=== PATIENT | female | born 1945 | race Caucasian/White ===

== ENCOUNTER 2022-02-28 10:37 | Emergency (ER) | payer MEDICARE ==
[2022-02-28] MEDS ORDERED: Diazepam 10 MG/2 ML SYRINGE ONE (11:25)
== END 2022-02-28 12:39 | disposition home or self-care (01) ==
LOC: ERS 10:37
DX: M54.42 Lumbago with sciatica, left side (principal); I10 Essential (primary) hypertension; E78.5 Hyperlipidemia, unspecified; Z87.891 Personal history of nicotine dependence; Z79.899 Other long term (current) drug therapy
CPT/HCPCS: 96372; J3360

== ENCOUNTER 2023-04-29 15:30 | Inpatient (IN) | payer MEDICARE ==
[2023-05-03] MEDS ORDERED: Dexamethasone 4 mg/ml Vial ONE (06:16)
[2023-05-03] MEDS ORDERED: Albumin 5% 500 ML ONE (06:16)
[2023-05-03] MEDS ORDERED: Bupivacaine PF 0.5% 30 ML VIAL ONE (06:16)
[2023-05-03] MEDS ORDERED: EPINEPHrine 1 MG/ML AMP ONE (06:16)
[2023-05-03] MEDS ORDERED: Fentanyl 250 MCG/5 ML VIAL ONE (06:49)
[2023-05-03] MEDS ORDERED: Midazolam HCl 2 mg/2 ml Vial ONE (06:49)
[2023-05-03] MEDS ORDERED: Insulin Regular 300 UNITS/3 ML VIAL ONE (06:50)
[2023-05-03] MEDS ORDERED: Rocuronium Bromide 50 MG/5 ML VIAL ONE (06:50)
[2023-05-03] MEDS ORDERED: niCARdipine 25 MG/10 ML SDV ONE (06:50)
[2023-05-03] MEDS ORDERED: Norepinephrine 4 MG/4 ML VIAL ONE (06:50)
[2023-05-03] MEDS ORDERED: Aminocaproic Acid 5 GM/20 ML VIAL ONE ×2 (06:50→07:45)
[2023-05-03] MEDS ORDERED: Heparin 10,000 UNITS/1 ML VIAL 30,000 UNITS in Sodium Chloride 0.9% 1,000 ML FS SCH (07:00)
[2023-05-03] MEDS ORDERED: Vancomycin (BATCH) 1.5 GRAM/300 ML BAG ONE (07:00)
[2023-05-03] MEDS ORDERED: Clindamycin/D5W 600 mg/50 ml Premix Bag ONE (07:25)
[2023-05-03] MEDS ORDERED: Thrombin 5000 UNITS/5 ML VIAL ONE (07:45)
[2023-05-03] MEDS ORDERED: PROPOFOL 200 MG/20 ML VIAL ONE (07:45)
[2023-05-03] MEDS ORDERED: Sodium Bicarb 50 MEQ/50 ML VIAL ONE (07:45)
[2023-05-03] MEDS ORDERED: Protamine Sulfate 250 MG/25 ML VIAL ONE (07:45)
[2023-05-03] MEDS ORDERED: Esmolol 100 MG/10 ML VIAL ONE (07:45)
[2023-05-03] MEDS ORDERED: Calcium Chloride 1 GM/10 ML Abboject SYRINGE ONE (07:45)
[2023-05-03] MEDS ORDERED: Lidocaine 1% PF 5 ML VIAL ONE (07:45)
[2023-05-03] MEDS ORDERED: Heparin 5,000 UNITS/ML VIAL ONE (07:45)
[2023-05-03] MEDS ORDERED: Cardioplegic Soln 1,000 ML BAG ONE (07:45)
[2023-05-03] MEDS ORDERED: Magnesium 5 GM/10 ML VIAL ONE (07:45)
[2023-05-03] MEDS ORDERED: Heparin 30,000 units/30 ml VIAL ONE (07:45)
[2023-05-03] MEDS ORDERED: Papaverine 60 MG/2 ML VIAL ONE (07:45)
[2023-05-03] MEDS ORDERED: Rocuronium Bromide 10 MG/ML (10ML VIAL) ONE (07:45)
[2023-05-03] MEDS ORDERED: Mannitol 12.5 GM/50 ML ONE (07:45)
[2023-05-03] MEDS ORDERED: Potassium Chloride 60 MEQ/30 ML VIAL ONE (07:45)
[2023-05-03] MEDS ORDERED: Lidocaine 2% PF 100 mg/5 ml Syringe ONE (07:45)
[2023-05-03] MEDS ORDERED: Vancomycin 1 GM VIAL ONE (07:45)
[2023-05-03] MEDS ORDERED: Albuterol HFA (OR) 200 PUFF INH ONE (08:09)
[2023-05-03] MEDS ORDERED: PHENYLEPHRINE-NS 100 MCG/ML 10 ML SYRINGE ONE (08:41)
[2023-05-03] MEDS ORDERED: Bisacodyl 10 MG SUPP PR PRN (10:57)
[2023-05-03] MEDS ORDERED: Mag-Al 1200 mg/1200 mg/30 ML UDCUP PO PRN (10:57)
[2023-05-03] MEDS ORDERED: Ipratropium/Albuterol 3 ML NEB NEB PRN (10:57)
[2023-05-03] MEDS ORDERED: Morphine 2 MG/ML VIAL SLOW IVP PRN (10:57)
[2023-05-03] MEDS ORDERED: HYDROcodone/Acetaminophen 5/325 mg Tablet PO PRN ×2 (10:57)
[2023-05-03] MEDS ORDERED: Ondansetron PF 4 MG/2 ML Vial IVP PRN (10:57)
[2023-05-03] MEDS ORDERED: Nitroglycerin 50 MG/250 ML BOT 250 ML IVPB PRN (10:57)
[2023-05-03] MEDS ORDERED: NOREPINEPHRINE 8 MG/250 ML-D5W 250 ML IVPB PRN (10:57)
[2023-05-03] MEDS ORDERED: Hetastarch 6% 500 ML 500 ML IVPB PRN (10:57)
[2023-05-03] MEDS ORDERED: Bisacodyl 5 MG TAB PO PRN (10:57)
[2023-05-03] MEDS ORDERED: Guaifenesin DM 100-10/5 ML UDCUP PO PRN (10:57)
[2023-05-03] MEDS ORDERED: hydrALAZINE 20 MG/ML VIAL SLOW IVP PRN (10:57)
[2023-05-03] MEDS ORDERED: D5 1/2 NS w/20 mEq KCL 1,000 ML IV SCH (11:00)
[2023-05-03] MEDS ORDERED: Magnesium 2 GM/50 ML(in water) 2 GM in Premix Bag 1 BAG IVPB SCH (11:00)
[2023-05-03] MEDS ORDERED: HUMULIN R 100 UNITS in Sodium Chloride 0.9% 100 ML IVPB SCH (11:15)
[2023-05-03] MEDS ORDERED: Insulin Regular 300 UNITS/3 ML VIAL SC PRN (11:15)
[2023-05-03] MEDS ORDERED: Glucagon 1 MG/ML KIT SC PRN (11:15)
[2023-05-03] MEDS ORDERED: Dextrose 5% in Water 1,000 ML IV PRN (11:15)
[2023-05-03] MEDS ORDERED: Dextrose 50% Abboject 50 ML SYRINGE SLOW IVP PRN (11:15)
[2023-05-03 11:18] LABS: Actual Bicarbonate (HCO3a) 22.9 mEq/L (22-28); Base Excess (BEa) -2.5 mEq/L (-2.0 to +3.0); CO2 Tension 41.7 mmHg (35.0-45.0); Calcium, Ionized (arterial) 1.08 mmol/L (1.12-1.30); Carboxyhemoglobin (COHb) 0.3 gm% (0.0-3.0); Hematocrit-ABG 36 % (36.0-47.0); Hemoglobin (Hb) 12.4 g/dL (12.0-16.0); O2 Tension (PaO2), arterial 143.4 mmHg (> 70.0); Potassium - ABG Lab 3.61 mmol/L (3.70-5.30); pH, Arterial 7.357 (7.35-7.45)
[2023-05-03 11:19] LABS: ALV-art Gradient 160.975 mmHg (0-20); Puncture Site Arterial Line
[2023-05-03 11:23] LABS: #Eosinphils 0.1 thou/uL (0.0-0.7); #Monocytes 0.4 thou/uL (0.11-0.59); #Neutrophils 7.8 thou/uL (1.40-6.50); %Basophils 0.3 % (0.0-1.0); %Lymphocytes 18.5 % (21.0-51.0); %Monocytes 3.9 % (0.0-10.0); %Neutrophils 75.6 % (42.0-75.0); Hematocrit 32.9 % (36.0-47.0); Hemoglobin 10.8 g/dL (12.0-16.0); Mean Corpuscular HGB CONC 32.8 g/dL (32.0-36.0); Mean Corpuscular Hemoglobin 31.2 pg (27.0-31.0); Mean Corpuscular Volume 95.1 fl (78.0-98.0); Mean Platelet Volume 9.9 fL (7.4-10.4); Platelet Count 125 10x3/uL (130-400); RBC Distribution Width 12.3 % (11.5-14.5); Red Blood Cell (RBC) Count 3.46 mill/uL (4.20-5.40); White Blood Cell (WBC) Count 10.3 10x3/uL (4.8-10.8)
[2023-05-03 11:40] LABS: INR-International Normal Ratio 1.3; Prothrombin Time 16.3 sec (12.0-14.7)
[2023-05-03 11:41] LABS: PTT 37.6 sec (22.9-36.1)
[2023-05-03 11:50] LABS: Anion Gap 12 mmol/L (10-20); BUN (Urea Nitrogen) 19 mg/dL (9.8-20.1); Calc. Creatinine Clearance 146 mL/min (70-130); Carbon Dioxide 19 mmol/L (23-31); Chloride 114 mmol/L (98-107); Estimated GFR 94; Glucose 161 mg/dL (83-110); Potassium 3.3 mmol/L (3.5-5.1); Sodium 142 mmol/L (136-145)
[2023-05-03] MEDS: Ketorolac Tromethamine 30 MG/ML VIAL IVP SCH ×2 (12:08→17:40)
[2023-05-03] MEDS: fentaNYL 50 mcg/mL 1 mL Vial SLOW IVP PRN ×3 (12:09→21:21)
[2023-05-03] MEDS: Potassium Chloride 20 MEQ/100 ML PREMIX BAG IVPB PRN ×2 (12:11→17:52)
[2023-05-03] MEDS: Ipratropium/Albuterol 3 ML NEB NEB SCH ×2 (13:37→18:52)
[2023-05-03] MEDS: Clindamycin/D5W 600 MG in Premix Bag 1 BAG IVPB SCH ×2 (14:12→20:06)
[2023-05-03 14:27] VITALS: BMI 43.6
[2023-05-03 15:35] LABS: Actual Bicarbonate (HCO3a) 22.1 mEq/L (22-28); Base Excess (BEa) -4.1 mEq/L (-2.0 to +3.0); Calcium, Ionized (arterial) 1.08 mmol/L (1.12-1.30); Carboxyhemoglobin (COHb) 0.3 gm% (0.0-3.0); Hematocrit-ABG 37 % (36.0-47.0); Hemoglobin (Hb) 12.5 g/dL (12.0-16.0); O2 Tension (PaO2), arterial 87.4 mmHg (> 70.0)
[2023-05-03 15:42] LABS: Puncture Site Arterial Line
[2023-05-03 17:27] LABS: Hematocrit 34.8 % (36.0-47.0); Hemoglobin 11.4 g/dL (12.0-16.0)
[2023-05-03 17:46] LABS: Potassium 3.8 mmol/L (3.5-5.1)
[2023-05-03] MEDS: Vancomycin 1.5 GRAM/300 ML BAG 1.5 GM in Premix Bag 1 BAG IVPB SCH (19:57)
[2023-05-03] MEDS ORDERED: Famotidine/PF 20 mg/2ml Vial SLOW IVP SCH (21:00)
[2023-05-03] MEDS: Atorvastatin Calcium 20 MG TAB PO SCH (21:11)
[2023-05-03] MEDS: Acetaminophen 325 MG TAB PO PRN (21:50)
[2023-05-04] MEDS: Ipratropium/Albuterol 3 ML NEB NEB SCH ×4 (01:23→17:58)
[2023-05-04] MEDS: Clindamycin/D5W 600 MG in Premix Bag 1 BAG IVPB SCH ×2 (02:20→09:22)
[2023-05-04 03:57] LABS: #Monocytes 0.7 thou/uL (0.11-0.59); #Neutrophils 11.7 thou/uL (1.40-6.50); %Basophils 0.2 % (0.0-1.0); %Lymphocytes 4.8 % (21.0-51.0); %Monocytes 5.4 % (0.0-10.0); %Neutrophils 89.1 % (42.0-75.0); Hematocrit 33.5 % (36.0-47.0); Hemoglobin 10.8 g/dL (12.0-16.0); Mean Corpuscular HGB CONC 32.2 g/dL (32.0-36.0); Mean Corpuscular Hemoglobin 30.5 pg (27.0-31.0); Mean Corpuscular Volume 94.6 fl (78.0-98.0); Mean Platelet Volume 10.1 fL (7.4-10.4); Platelet Count 143 10x3/uL (130-400); RBC Distribution Width 12.5 % (11.5-14.5); Red Blood Cell (RBC) Count 3.54 mill/uL (4.20-5.40); White Blood Cell (WBC) Count 13.1 10x3/uL (4.8-10.8)
[2023-05-04 04:19] LABS: Anion Gap 10 mmol/L (10-20); BUN (Urea Nitrogen) 18 mg/dL (9.8-20.1); Calc. Creatinine Clearance 134 mL/min (70-130); Calcium 7.8 mg/dL (7.8-10.44); Carbon Dioxide 24 mmol/L (23-31); Chloride 110 mmol/L (98-107); Estimated GFR 91; Glucose 154 mg/dL (83-110); Potassium 4.4 mmol/L (3.5-5.1); Sodium 140 mmol/L (136-145)
[2023-05-04] MEDS: Vancomycin 1.5 GRAM/300 ML BAG 1.5 GM in Premix Bag 1 BAG IVPB SCH (06:31)
[2023-05-04] MEDS: Ketorolac Tromethamine 30 MG/ML VIAL IVP SCH ×5 (06:31→23:33)
[2023-05-04] MEDS ORDERED: Aspirin 325 MG TAB PO SCH (09:00)
[2023-05-04] MEDS: Acetaminophen 325 MG TAB PO PRN (09:18)
[2023-05-04] MEDS: fentaNYL 50 mcg/mL 1 mL Vial SLOW IVP PRN (09:20)
[2023-05-04] MEDS: Magnesium 2 GM/50 ML(in water) 2 GM in Premix Bag 1 BAG IVPB SCH (09:21)
[2023-05-04] MEDS ORDERED: Insulin Glargine 30 UNITS/0.3 ML VIAL SC PRN (11:12)
[2023-05-04] MEDS: Atorvastatin Calcium 20 MG TAB PO SCH (21:16)
[2023-05-05] MEDS: Ipratropium/Albuterol 3 ML NEB NEB SCH ×4 (02:20→18:17)
[2023-05-05] MEDS: Ketorolac Tromethamine 30 MG/ML VIAL IVP SCH ×4 (06:05→23:32)
[2023-05-05] MEDS ORDERED: Bisacodyl 5 MG TAB PO PRN (07:23)
[2023-05-05] MEDS ORDERED: Guaifenesin DM 100-10/5 ML UDCUP PO PRN (07:23)
[2023-05-05] MEDS ORDERED: Milk Of Magnesia 30 ML UDCUP PO PRN (07:23)
[2023-05-05] MEDS ORDERED: Mag-Al 1200 mg/1200 mg/30 ML UDCUP PO PRN (07:23)
[2023-05-05] MEDS ORDERED: Mineral Oil ENEMA PR PRN (07:23)
[2023-05-05] MEDS ORDERED: diphenhydrAMINE 25 MG CAP PO PRN (07:23)
[2023-05-05] MEDS ORDERED: Nitroglycerin 0.4 MG TAB (25 Tab Bottle) SL PRN (07:23)
[2023-05-05] MEDS ORDERED: Bisacodyl 10 MG SUPP PR PRN (07:23)
[2023-05-05] MEDS ORDERED: Artificial Tear Sol 15 ML BOT EA EYE PRN (07:23)
[2023-05-05] MEDS ORDERED: Zolpidem Tartrate 5 MG TAB PO PRN (07:23)
[2023-05-05] MEDS ORDERED: Potassium Chloride 10 MEQ TAB PO SCH (08:00)
[2023-05-05] MEDS: Magnesium 2 GM/50 ML(in water) 2 GM in Premix Bag 1 BAG IVPB SCH (08:06)
[2023-05-05] MEDS: Aspirin 325 mg Enteric Coated Tablet PO SCH (08:07)
[2023-05-05] MEDS: Metoprolol Tartrate 25 MG TAB PO SCH ×2 (08:08→20:47)
[2023-05-05] MEDS: fentaNYL 50 mcg/mL 1 mL Vial SLOW IVP PRN (08:51)
[2023-05-05] MEDS ORDERED: Furosemide 40 MG TAB PO SCH (09:00)
[2023-05-05] MEDS: Atorvastatin Calcium 20 MG TAB PO SCH (20:46)
[2023-05-06] MEDS: Ipratropium/Albuterol 3 ML NEB NEB SCH ×5 (00:59→23:47)
[2023-05-06] MEDS: Ketorolac Tromethamine 30 MG/ML VIAL IVP SCH ×2 (05:46→11:33)
[2023-05-06] MEDS ORDERED: Metolazone 5 MG TAB PO SCH (06:45)
[2023-05-06] MEDS: Potassium Chloride 10 MEQ TAB PO SCH ×2 (07:15→17:35)
[2023-05-06] MEDS: Furosemide 40 MG TAB PO SCH ×2 (08:03→13:00)
[2023-05-06] MEDS: Aspirin 325 mg Enteric Coated Tablet PO SCH (08:03)
[2023-05-06] MEDS: Metoprolol Tartrate 25 MG TAB PO SCH ×2 (08:03→21:37)
[2023-05-06] MEDS: Acetaminophen 325 MG TAB PO PRN ×2 (08:22→23:17)
[2023-05-06 10:46] LABS: Actual Bicarbonate (HCO3a) 22.6 mEq/L (22-28); Analyzer IN Cardio OR; Base Excess (BEa) -2.2 mEq/L (-2.0 to +3.0); CO2 Tension 39.1 mmHg (35.0-45.0); Calcium, Ionized (arterial) 1.12 mmol/L (1.12-1.30); Carboxyhemoglobin (COHb) 1.2 gm% (0.0-3.0); Hematocrit-ABG 38 % (36.0-47.0); O2 Tension (PaO2), arterial 453.4 mmHg (> 70.0); Potassium - ABG Lab 3.35 mmol/L (3.70-5.30)
[2023-05-06 10:47] LABS: Actual Bicarbonate (HCO3a) 23.9 mEq/L (22-28); Analyzer IN Cardio OR; Base Excess (BEa) -1.1 mEq/L (-2.0 to +3.0); CO2 Tension 40.6 mmHg (35.0-45.0); Calcium, Ionized (arterial) 1.07 mmol/L (1.12-1.30); Carboxyhemoglobin (COHb) 0.6 gm% (0.0-3.0); Hematocrit-ABG 36 % (36.0-47.0); Hemoglobin (Hb) 12.1 g/dL (12.0-16.0); Potassium - ABG Lab 3.37 mmol/L (3.70-5.30); pH, Arterial 7.387 (7.35-7.45)
[2023-05-06 10:47] LABS: Actual Bicarbonate (HCO3a) 26.1 mEq/L (22-28); Analyzer IN Cardio OR; Base Excess (BEa) 1.3 mEq/L (-2.0 to +3.0); CO2 Tension 41.9 mmHg (35.0-45.0); Calcium, Ionized (arterial) 0.98 mmol/L (1.12-1.30); Carboxyhemoglobin (COHb) 0.1 gm% (0.0-3.0); Hematocrit-ABG 29 % (36.0-47.0); Hemoglobin (Hb) 9.7 g/dL (12.0-16.0); O2 Tension (PaO2), arterial 437.3 mmHg (> 70.0); Potassium - ABG Lab 4.18 mmol/L (3.70-5.30); pH, Arterial 7.412 (7.35-7.45)
[2023-05-06 10:48] LABS: Actual Bicarbonate (HCO3a) 20.6 mEq/L (22-28); Analyzer IN Cardio OR; Base Excess (BEa) -3.5 mEq/L (-2.0 to +3.0); CO2 Tension 34.1 mmHg (35.0-45.0); Calcium, Ionized (arterial) 1.05 mmol/L (1.12-1.30); Carboxyhemoglobin (COHb) 0.6 gm% (0.0-3.0); Hematocrit-ABG 34 % (36.0-47.0); Hemoglobin (Hb) 11.4 g/dL (12.0-16.0); O2 Tension (PaO2), arterial 415.9 mmHg (> 70.0); Potassium - ABG Lab 3.67 mmol/L (3.70-5.30)
[2023-05-06 10:48] LABS: Actual Bicarbonate (HCO3v) 25.4 mEq/L (22-28); Analyzer IN Cardio OR; Base Excess -0.1 mEq/L (-2.0 to +3.0); Calcium, Ionized (venous) 1.03 mmol/L (1.16-1.32); Chloride (VBG) 106 mmol/L (98-106); Hematocrit-VBG 29 % (36.0-47.0); Potassium (VBG) 4.26 mmol/L (3.70-5.30); Sodium 137.5 mmol/L (133-146); pH (venous) 7.371 (7.32-7.43)
[2023-05-06 10:48] LABS: Actual Bicarbonate (HCO3a) 23.2 mEq/L (22-28); Analyzer IN Cardio OR; Base Excess (BEa) -1.5 mEq/L (-2.0 to +3.0); CO2 Tension 38.9 mmHg (35.0-45.0); Calcium, Ionized (arterial) 1.01 mmol/L (1.12-1.30); Carboxyhemoglobin (COHb) 0.3 gm% (0.0-3.0); Hematocrit-ABG 27 % (36.0-47.0); Hemoglobin (Hb) 9.3 g/dL (12.0-16.0); O2 Tension (PaO2), arterial 312.8 mmHg (> 70.0); Potassium - ABG Lab 4.23 mmol/L (3.70-5.30); pH, Arterial 7.393 (7.35-7.45)
[2023-05-06 10:49] LABS: Puncture Site Arterial Line
[2023-05-06 10:49] LABS: Puncture Site Arterial Line
[2023-05-06 10:50] LABS: Puncture Site Arterial Line
[2023-05-06 10:50] LABS: Puncture Site Arterial Line
[2023-05-06 10:51] LABS: Puncture Site Arterial Line
[2023-05-06] MEDS: Atorvastatin Calcium 20 MG TAB PO SCH (21:38)
[2023-05-07] MEDS: Acetaminophen 325 MG TAB PO PRN ×2 (05:03→22:50)
[2023-05-07] MEDS: Aspirin 325 mg Enteric Coated Tablet PO SCH (07:51)
[2023-05-07] MEDS: Furosemide 40 MG TAB PO SCH ×2 (07:52→15:02)
[2023-05-07] MEDS: Metoprolol Tartrate 25 MG TAB PO SCH ×2 (07:52→21:48)
[2023-05-07] MEDS: Potassium Chloride 10 MEQ TAB PO SCH ×2 (07:54→16:29)
[2023-05-07] MEDS ORDERED: Ipratropium/Albuterol 3 ML NEB ONE (10:20)
[2023-05-07] MEDS: Ipratropium/Albuterol 3 ML NEB NEB SCH ×4 (10:27→23:41)
[2023-05-07] MEDS: Atorvastatin Calcium 20 MG TAB PO SCH (21:48)
[2023-05-08] MEDS: Ipratropium/Albuterol 3 ML NEB NEB SCH ×3 (07:18→18:43)
[2023-05-08] MEDS: Potassium Chloride 10 MEQ TAB PO SCH ×2 (08:22→16:15)
[2023-05-08] MEDS: Aspirin 325 mg Enteric Coated Tablet PO SCH (08:22)
[2023-05-08] MEDS: Furosemide 40 MG TAB PO SCH ×2 (08:23→14:08)
[2023-05-08] MEDS: Metoprolol Tartrate 25 MG TAB PO SCH (08:23)
[2023-05-08] MEDS ORDERED: Valsartan 80 MG TAB PO SCH (09:00)
[2023-05-08] MEDS ORDERED: traMADol HCl 50 MG TAB PO PRN (15:57)
[2023-05-08 16:00] VITALS: BP 120/56; TEMP 97.9
[2023-05-08] MEDS ORDERED: Metoprolol Tartrate 25 MG TAB PO SCH (21:00)
== END 2023-05-08 19:45 | disposition home or self-care (01) | DRG 236 ==
LOC: SURG A 05-03 05:50 → CCU 05-03 11:09 → 2NO 05-06 17:48
PROVIDERS: ADMIT Thoracic Surgery (Cardiothoracic Vascular Surgery); ATTEND Thoracic Surgery (Cardiothoracic Vascular Surgery)
PROC: 02100Z9 Bypass Coronary Artery, One Artery from Left Internal Mammary, Open Approach (ICD-10-PCS; principal; 2023-05-03)
PROC: 021109W Bypass Coronary Artery, Two Arteries from Aorta with Autologous Venous Tissue, Open Approach (ICD-10-PCS; 2023-05-03)
PROC: 06BQ0ZZ Excision of Left Saphenous Vein, Open Approach (ICD-10-PCS; 2023-05-03)
PROC: 02L70CK Occlusion of Left Atrial Appendage with Extraluminal Device, Open Approach (ICD-10-PCS; 2023-05-03)
PROC: 5A1221Z Performance of Cardiac Output, Continuous (ICD-10-PCS; 2023-05-03)
PROC: 4A133R1 Monitoring of Arterial Saturation, Peripheral, Percutaneous Approach (ICD-10-PCS; 2023-05-03)
DX: I25.10 Atherosclerotic heart disease of native coronary artery without angina pectoris (principal); Z68.41 Body mass index [BMI] 40.0-44.9, adult; I10 Essential (primary) hypertension; E78.5 Hyperlipidemia, unspecified; E66.9 Obesity, unspecified; Z90.710 Acquired absence of both cervix and uterus; Z90.49 Acquired absence of other specified parts of digestive tract; Z98.890 Other specified postprocedural states; Z88.0 Allergy status to penicillin; Z79.82 Long term (current) use of aspirin; Z79.899 Other long term (current) drug therapy
CPT/HCPCS: 36415; 36416; 36430; 71045; 80048; 82805; 85025; 85610; 85730; 86850; 86900; 86901; 93005; 93010; 93798; 94002; 94150; 94640; C1751; J0171; J1100; J1642; J1644; J1815; J1885; J2001; J2150; J2250; J2272; J2440; J2704; J2720; J3010; J3370; J3475; J3480; J3490; J7620; P9045; S0017; S0020; S0028

== ENCOUNTER 2023-04-29 15:32 | Outpatient (CLI) | payer MEDICARE | END 2023-04-29 15:33 | disposition home or self-care (01) | LOC: LABBT 15:32 | PROVIDERS: ATTEND Thoracic Surgery (Cardiothoracic Vascular Surgery) | DX: Z01.818 Encounter for other preprocedural examination (principal); I25.10 Atherosclerotic heart disease of native coronary artery without angina pectoris | CPT/HCPCS: 71046; 86850; 86900; 86901; 93005; 93010 ==

== ENCOUNTER 2023-06-22 11:33 | Inpatient (IN) | payer MEDICARE ==
[~2023-06-22 11:33] MED LIST: Iopamidol-370 76% 500 ML MDV (1 ML CHARGE) ONE
[2023-06-22 12:27] LABS: #Eosinphils 0.2 thou/uL (0.0-0.7); #Monocytes 0.4 thou/uL (0.11-0.59); #Neutrophils 3.3 thou/uL (1.40-6.50); %Basophils 0.7 % (0.0-1.0); %Eosinophils 3.1 % (0.0-10.0); %Lymphocytes 31.1 % (21.0-51.0); %Monocytes 6.3 % (0.0-10.0); %Neutrophils 58.5 % (42.0-75.0); Hematocrit 40.4 % (36.0-47.0); Hemoglobin 12.7 g/dL (12.0-16.0); Mean Corpuscular HGB CONC 31.4 g/dL (32.0-36.0); Mean Corpuscular Hemoglobin 29.4 pg (27.0-31.0); Mean Corpuscular Volume 93.5 fl (78.0-98.0); Mean Platelet Volume 10.1 fL (7.4-10.4); Platelet Count 248 10x3/uL (130-400); RBC Distribution Width 13.2 % (11.5-14.5); Red Blood Cell (RBC) Count 4.32 mill/uL (4.20-5.40); White Blood Cell (WBC) Count 5.7 10x3/uL (4.8-10.8)
[2023-06-22 12:46] LABS: ALT (SGPT) 20 U/L (8-55); AST (SGOT) 17 U/L (5-34); Albumin 3.7 g/dL (3.4-4.8); Alkaline Phosphatase 80 U/L (40-110); Anion Gap 14 mmol/L (10-20); BUN (Urea Nitrogen) 17 mg/dL (9.8-20.1); Bilirubin, Total 0.5 mg/dL (0.2-1.2); Calc. Creatinine Clearance 0 mL/min (70-130); Calcium 9.6 mg/dL (7.8-10.44); Carbon Dioxide 31 mmol/L (23-31); Chloride 103 mmol/L (98-107); Estimated GFR 79; Globulin 4.1 g/dL (2.4-3.5); Glucose 101 mg/dL (83-110); Magnesium 2.1 mg/dL (1.6-2.6); Potassium 4.1 mmol/L (3.5-5.1); Protein, Total 7.8 g/dL (5.8-8.1); Sodium 144 mmol/L (136-145)
[2023-06-22 12:50] LABS: Troponin I Less than 0.010 ng/mL (< 0.028)
[2023-06-22] MEDS ORDERED: Furosemide 40 MG/4 ML VIAL ONE (13:35)
[2023-06-22] MEDS ORDERED: Ondansetron PF 4 MG/2 ML Vial IVP PRN (14:09)
[2023-06-22] MEDS ORDERED: Acetaminophen 325 MG TAB PO PRN (14:09)
[2023-06-22 16:17] VITALS: BMI 40.8
[2023-06-22] MEDS: Heparin 5,000 UNITS/ML VIAL SC SCH ×2 (16:52→20:15)
[2023-06-22 18:41] LABS: Troponin I Less than 0.010 ng/mL (< 0.028)
[2023-06-22 21:27] LABS: Troponin I Less than 0.010 ng/mL (< 0.028)
[2023-06-23 04:32] LABS: #Eosinphils 0.2 thou/uL (0.0-0.7); #Monocytes 0.4 thou/uL (0.11-0.59); #Neutrophils 3.5 thou/uL (1.40-6.50); %Basophils 0.5 % (0.0-1.0); %Eosinophils 3.9 % (0.0-10.0); %Lymphocytes 32.3 % (21.0-51.0); %Monocytes 7.1 % (0.0-10.0); %Neutrophils 55.9 % (42.0-75.0); Hematocrit 37.6 % (36.0-47.0); Hemoglobin 11.8 g/dL (12.0-16.0); Mean Corpuscular HGB CONC 31.4 g/dL (32.0-36.0); Mean Corpuscular Hemoglobin 29.9 pg (27.0-31.0); Mean Corpuscular Volume 95.2 fl (78.0-98.0); Mean Platelet Volume 10.6 fL (7.4-10.4); Platelet Count 226 10x3/uL (130-400); RBC Distribution Width 13.4 % (11.5-14.5); Red Blood Cell (RBC) Count 3.95 mill/uL (4.20-5.40); White Blood Cell (WBC) Count 6.2 10x3/uL (4.8-10.8)
[2023-06-23 04:55] LABS: Anion Gap 12 mmol/L (10-20); BUN (Urea Nitrogen) 20 mg/dL (9.8-20.1); Calc. Creatinine Clearance 116 mL/min (70-130); Calcium 9.2 mg/dL (7.8-10.44); Carbon Dioxide 32 mmol/L (23-31); Chloride 101 mmol/L (98-107); Estimated GFR 84; Glucose 106 mg/dL (83-110); Potassium 3.8 mmol/L (3.5-5.1); Sodium 141 mmol/L (136-145)
[2023-06-23] MEDS: Furosemide 40 MG/4 ML VIAL SLOW IVP SCH ×2 (06:14→13:50)
[2023-06-23] MEDS ORDERED: Rosuvastatin 20 MG TAB PO SCH (09:00)
[2023-06-23] MEDS: Heparin 5,000 UNITS/ML VIAL SC SCH ×3 (09:18→22:05)
[2023-06-23] MEDS: Aspirin Chewable 81 MG TAB PO SCH (09:18)
[2023-06-23] MEDS ORDERED: traMADol HCl 50 MG TAB PO PRN (12:29)
[2023-06-23] MEDS ORDERED: Valsartan 80 MG TAB PO SCH (12:30)
[2023-06-23] MEDS ORDERED: Empagliflozin 10 MG TAB PO SCH (17:45)
[2023-06-23] MEDS ORDERED: Metoprolol Tartrate 25 MG TAB PO SCH (21:00)
[2023-06-23] MEDS: Rosuvastatin 20 MG TAB PO SCH (22:04)
[2023-06-24 03:51] LABS: #Eosinphils 0.3 thou/uL (0.0-0.7); #Monocytes 0.5 thou/uL (0.11-0.59); #Neutrophils 4.1 thou/uL (1.40-6.50); %Basophils 0.4 % (0.0-1.0); %Eosinophils 3.7 % (0.0-10.0); %Lymphocytes 25.9 % (21.0-51.0); %Monocytes 7.9 % (0.0-10.0); %Neutrophils 61.8 % (42.0-75.0); Hematocrit 39.6 % (36.0-47.0); Hemoglobin 12.3 g/dL (12.0-16.0); Mean Corpuscular HGB CONC 31.1 g/dL (32.0-36.0); Mean Corpuscular Hemoglobin 29.6 pg (27.0-31.0); Mean Corpuscular Volume 95.4 fl (78.0-98.0); Mean Platelet Volume 9.9 fL (7.4-10.4); Platelet Count 221 10x3/uL (130-400); RBC Distribution Width 13.4 % (11.5-14.5); Red Blood Cell (RBC) Count 4.15 mill/uL (4.20-5.40); White Blood Cell (WBC) Count 6.7 10x3/uL (4.8-10.8)
[2023-06-24 04:16] LABS: Anion Gap 13 mmol/L (10-20); BUN (Urea Nitrogen) 17 mg/dL (9.8-20.1); Calc. Creatinine Clearance 114 mL/min (70-130); Calcium 9.3 mg/dL (7.8-10.44); Carbon Dioxide 34 mmol/L (23-31); Chloride 101 mmol/L (98-107); Estimated GFR 83; Glucose 105 mg/dL (83-110); Potassium 3.7 mmol/L (3.5-5.1); Sodium 144 mmol/L (136-145)
[2023-06-24] MEDS: Furosemide 40 MG/4 ML VIAL SLOW IVP SCH ×2 (05:47→15:30)
[2023-06-24] MEDS ORDERED: Valsartan 80 MG TAB PO SCH (09:00)
[2023-06-24] MEDS: Sertraline 25 MG TAB PO SCH (09:04)
[2023-06-24] MEDS: Empagliflozin 10 MG TAB PO SCH (09:04)
[2023-06-24] MEDS: Aspirin Chewable 81 MG TAB PO SCH (09:04)
[2023-06-24] MEDS: Heparin 5,000 UNITS/ML VIAL SC SCH ×3 (09:05→19:50)
[2023-06-24] MEDS: Sacubitril 49 MG/Valsartan 51 MG TABLET PO SCH (19:49)
[2023-06-24] MEDS: Rosuvastatin 20 MG TAB PO SCH (19:49)
[2023-06-25 05:29] LABS: #Eosinphils 0.2 thou/uL (0.0-0.7); #Monocytes 0.6 thou/uL (0.11-0.59); #Neutrophils 3.3 thou/uL (1.40-6.50); %Basophils 0.3 % (0.0-1.0); %Eosinophils 3.6 % (0.0-10.0); %Lymphocytes 33.6 % (21.0-51.0); %Monocytes 10.1 % (0.0-10.0); %Neutrophils 52.1 % (42.0-75.0); Hematocrit 38.3 % (36.0-47.0); Hemoglobin 11.7 g/dL (12.0-16.0); Mean Corpuscular HGB CONC 30.5 g/dL (32.0-36.0); Mean Corpuscular Hemoglobin 29.6 pg (27.0-31.0); Mean Platelet Volume 10.2 fL (7.4-10.4); Platelet Count 224 10x3/uL (130-400); RBC Distribution Width 13.5 % (11.5-14.5); Red Blood Cell (RBC) Count 3.95 mill/uL (4.20-5.40); White Blood Cell (WBC) Count 6.3 10x3/uL (4.8-10.8)
[2023-06-25] MEDS: Furosemide 40 MG/4 ML VIAL SLOW IVP SCH ×2 (05:50→15:29)
[2023-06-25 06:19] LABS: Anion Gap 14 mmol/L (10-20); BUN (Urea Nitrogen) 16 mg/dL (9.8-20.1); Calc. Creatinine Clearance 106 mL/min (70-130); Calcium 9.3 mg/dL (7.8-10.44); Carbon Dioxide 35 mmol/L (23-31); Chloride 99 mmol/L (98-107); Estimated GFR 76; Glucose 102 mg/dL (83-110); Potassium 3.2 mmol/L (3.5-5.1); Sodium 145 mmol/L (136-145)
[2023-06-25] MEDS ORDERED: Potassium Chloride 20 MEQ TAB PO SCH ×2 (06:45→09:15)
[2023-06-25 07:51] LABS: Magnesium 2.3 mg/dL (1.6-2.6)
[2023-06-25] MEDS: Sacubitril 49 MG/Valsartan 51 MG TABLET PO SCH ×2 (09:56→20:34)
[2023-06-25] MEDS: Sertraline 25 MG TAB PO SCH (09:57)
[2023-06-25] MEDS: Empagliflozin 10 MG TAB PO SCH (09:57)
[2023-06-25] MEDS: Aspirin Chewable 81 MG TAB PO SCH (09:57)
[2023-06-25] MEDS: Heparin 5,000 UNITS/ML VIAL SC SCH ×3 (09:59→20:35)
[2023-06-25] MEDS: Rosuvastatin 20 MG TAB PO SCH (20:34)
[2023-06-25] MEDS: Nystatin Powder 15 GM BOT TOP PRN (20:40)
[2023-06-26 04:26] LABS: #Eosinphils 0.2 thou/uL (0.0-0.7); #Monocytes 0.5 thou/uL (0.11-0.59); #Neutrophils 2.7 thou/uL (1.40-6.50); %Basophils 0.5 % (0.0-1.0); %Eosinophils 4.4 % (0.0-10.0); %Lymphocytes 37.9 % (21.0-51.0); %Monocytes 8.5 % (0.0-10.0); %Neutrophils 48.5 % (42.0-75.0); Hematocrit 40.3 % (36.0-47.0); Hemoglobin 12.5 g/dL (12.0-16.0); Mean Corpuscular Hemoglobin 29.9 pg (27.0-31.0); Mean Corpuscular Volume 96.4 fl (78.0-98.0); Mean Platelet Volume 10.1 fL (7.4-10.4); Platelet Count 218 10x3/uL (130-400); RBC Distribution Width 13.5 % (11.5-14.5); Red Blood Cell (RBC) Count 4.18 mill/uL (4.20-5.40); White Blood Cell (WBC) Count 5.5 10x3/uL (4.8-10.8)
[2023-06-26 05:01] LABS: Anion Gap 14 mmol/L (10-20); BUN (Urea Nitrogen) 19 mg/dL (9.8-20.1); Calc. Creatinine Clearance 110 mL/min (70-130); Calcium 9.5 mg/dL (7.8-10.44); Carbon Dioxide 34 mmol/L (23-31); Chloride 101 mmol/L (98-107); Estimated GFR 83; Glucose 112 mg/dL (83-110); Potassium 3.9 mmol/L (3.5-5.1); Sodium 145 mmol/L (136-145)
[2023-06-26] MEDS: Furosemide 40 MG/4 ML VIAL SLOW IVP SCH ×2 (05:17→15:17)
[2023-06-26] MEDS: Empagliflozin 10 MG TAB PO SCH (09:59)
[2023-06-26] MEDS: Sacubitril 49 MG/Valsartan 51 MG TABLET PO SCH ×2 (09:59→20:33)
[2023-06-26] MEDS: Sertraline 25 MG TAB PO SCH (09:59)
[2023-06-26] MEDS: Aspirin Chewable 81 MG TAB PO SCH (10:00)
[2023-06-26] MEDS: Nystatin Powder 15 GM BOT TOP PRN (10:00)
[2023-06-26] MEDS: Heparin 5,000 UNITS/ML VIAL SC SCH ×3 (10:03→20:33)
[2023-06-26] MEDS: Rosuvastatin 20 MG TAB PO SCH (20:32)
[2023-06-27 03:56] LABS: #Eosinphils 0.2 thou/uL (0.0-0.7); #Monocytes 0.5 thou/uL (0.11-0.59); #Neutrophils 2.8 thou/uL (1.40-6.50); %Basophils 0.6 % (0.0-1.0); %Eosinophils 4.4 % (0.0-10.0); %Lymphocytes 35.8 % (21.0-51.0); %Monocytes 8.3 % (0.0-10.0); %Neutrophils 50.7 % (42.0-75.0); Hemoglobin 12.8 g/dL (12.0-16.0); Mean Corpuscular HGB CONC 30.5 g/dL (32.0-36.0); Mean Corpuscular Hemoglobin 29.5 pg (27.0-31.0); Mean Corpuscular Volume 96.8 fl (78.0-98.0); Mean Platelet Volume 9.8 fL (7.4-10.4); Platelet Count 216 10x3/uL (130-400); RBC Distribution Width 13.5 % (11.5-14.5); Red Blood Cell (RBC) Count 4.34 mill/uL (4.20-5.40); White Blood Cell (WBC) Count 5.5 10x3/uL (4.8-10.8)
[2023-06-27 04:14] LABS: Anion Gap 14 mmol/L (10-20); BUN (Urea Nitrogen) 25 mg/dL (9.8-20.1); Calc. Creatinine Clearance 93 mL/min (70-130); Calcium 9.8 mg/dL (7.8-10.44); Carbon Dioxide 35 mmol/L (23-31); Chloride 98 mmol/L (98-107); Estimated GFR 68; Glucose 120 mg/dL (83-110); Potassium 3.7 mmol/L (3.5-5.1); Sodium 143 mmol/L (136-145)
[2023-06-27] MEDS: Furosemide 40 MG/4 ML VIAL SLOW IVP SCH (06:13)
[2023-06-27] MEDS: Sertraline 25 MG TAB PO SCH (08:21)
[2023-06-27] MEDS: Heparin 5,000 UNITS/ML VIAL SC SCH ×3 (08:21→20:42)
[2023-06-27] MEDS: Sacubitril 49 MG/Valsartan 51 MG TABLET PO SCH ×2 (08:22→20:42)
[2023-06-27] MEDS: Empagliflozin 10 MG TAB PO SCH (08:22)
[2023-06-27] MEDS: Aspirin Chewable 81 MG TAB PO SCH (09:52)
[2023-06-27] MEDS: Nystatin Powder 15 GM BOT TOP PRN ×2 (09:54→20:48)
[2023-06-27] MEDS: Furosemide 40 MG TAB PO SCH (14:24)
[2023-06-27] MEDS: Rosuvastatin 20 MG TAB PO SCH (20:42)
[2023-06-28 04:34] LABS: #Eosinphils 0.3 thou/uL (0.0-0.7); #Monocytes 0.5 thou/uL (0.11-0.59); #Neutrophils 2.8 thou/uL (1.40-6.50); %Basophils 0.4 % (0.0-1.0); %Eosinophils 4.5 % (0.0-10.0); %Lymphocytes 36.1 % (21.0-51.0); %Monocytes 8.8 % (0.0-10.0); Hemoglobin 12.5 g/dL (12.0-16.0); Mean Corpuscular HGB CONC 30.5 g/dL (32.0-36.0); Mean Corpuscular Hemoglobin 28.9 pg (27.0-31.0); Mean Corpuscular Volume 94.9 fl (78.0-98.0); Mean Platelet Volume 10.5 fL (7.4-10.4); Platelet Count 202 10x3/uL (130-400); RBC Distribution Width 13.8 % (11.5-14.5); Red Blood Cell (RBC) Count 4.32 mill/uL (4.20-5.40); White Blood Cell (WBC) Count 5.5 10x3/uL (4.8-10.8)
[2023-06-28 05:05] LABS: Anion Gap 13 mmol/L (10-20); BUN (Urea Nitrogen) 27 mg/dL (9.8-20.1); Calc. Creatinine Clearance 100 mL/min (70-130); Calcium 9.4 mg/dL (7.8-10.44); Carbon Dioxide 34 mmol/L (23-31); Chloride 96 mmol/L (98-107); Estimated GFR 75; Glucose 108 mg/dL (83-110); Potassium 3.3 mmol/L (3.5-5.1); Sodium 140 mmol/L (136-145)
[2023-06-28] MEDS: Aspirin Chewable 81 MG TAB PO SCH (09:09)
[2023-06-28] MEDS: Heparin 5,000 UNITS/ML VIAL SC SCH (09:09)
[2023-06-28] MEDS: Sacubitril 49 MG/Valsartan 51 MG TABLET PO SCH (09:09)
[2023-06-28] MEDS: Empagliflozin 10 MG TAB PO SCH (09:10)
[2023-06-28] MEDS: Furosemide 40 MG TAB PO SCH (09:10)
[2023-06-28] MEDS: Sertraline 25 MG TAB PO SCH (09:13)
[2023-06-28 11:22] VITALS: BP 127/61; TEMP 97.4
[2023-06-28] MEDS ORDERED: Potassium Chloride 20 MEQ TAB PO PRN (12:39)
[2023-06-28] MEDS ORDERED: Metolazone 5 MG TAB PO PRN (12:39)
[2023-06-29] MEDS ORDERED: Metolazone 5 MG TAB PO SCH (08:30)
== END 2023-06-28 14:04 | disposition home or self-care (01) | DRG 291 ==
LOC: ERS 11:33 → 2NO 13:47
PROVIDERS: ADMIT Internal Medicine; ATTEND Internal Medicine
DX: I11.0 Hypertensive heart disease with heart failure (principal); I50.33 Acute on chronic diastolic (congestive) heart failure; J96.01 Acute respiratory failure with hypoxia; I25.10 Atherosclerotic heart disease of native coronary artery without angina pectoris; E66.9 Obesity, unspecified; E78.5 Hyperlipidemia, unspecified; Z90.49 Acquired absence of other specified parts of digestive tract; Z90.710 Acquired absence of both cervix and uterus; Z95.1 Presence of aortocoronary bypass graft; Z98.890 Other specified postprocedural states; Z87.891 Personal history of nicotine dependence; Z88.0 Allergy status to penicillin; Z79.82 Long term (current) use of aspirin; Z79.899 Other long term (current) drug therapy; Z68.39 Body mass index [BMI] 39.0-39.9, adult
CPT/HCPCS: 36415; 71045; 71275; 80048; 80053; 83735; 83880; 84484; 85025; 85379; 93005; 93306; 96374; J1644; J1940; Q9967